=== PATIENT | male | born 1935 | race Caucasian/White ===

== ENCOUNTER 2019-01-06 16:27 | Emergency (ER) | payer MEDICARE, OTHER ==
[~2019-01-06] VITALS: Ht 172.7 cm; Wt 59.0 kg
--- NOTE | 2019-01-06 16:55 | NUR ---
pt sent to ed via [facility] from [facility] after becoming aggressive with staff. pt has dementia and no recollection of event. pt is pleasent and appropriate upon arrival. pt connected to monitors. vss. edmd assessment complete. awaiting orders. per , pt needs inpatient psychiatric assessments and evaluations to "get medications under control." pt's states [facility] is uanle to deal with pt at night.
[2019-01-06] MEDS ORDERED: LORazepam 2 MG/ML, 1ML IM ONE (17:30)
[2019-01-06] MEDS ORDERED: LORazepam 1MG TABLET ONE (17:39)
[2019-01-06 17:45] LABS: BASOPHILS # (AUTO) 0.03 x10^3/uL (0-0.1); BASOPHILS % (AUTO) 0 % (0-1); EOSINOPHILS % (AUTO) 3 % (1-7); LYMPHOCYTES # (AUTO) 0.92 x10^3/uL (1-3.4); LYMPHOCYTES % (AUTO) 15 % (22-44); MD NO; MEAN CORPUSCULAR HEMOGLOBIN 33.1 pg (27.5-34.5); MEAN CORPUSCULAR HGB CONC 34.1 g/dL (33.2-36.2); MEAN PLATELET VOLUME 7.5 fL (7.4-10.4); MONOCYTES # (AUTO) 0.65 x10^3/uL (0.2-0.8); MONOCYTES % (AUTO) 10 % (2-9); NEUTROPHILS # (AUTO) 4.52 x10^3/uL (1.8-6.8); NEUTROPHILS % (AUTO) 72 % (42-75); PLATELET COUNT 189 x10^3/uL (130-400); RED BLOOD COUNT 3.74 x10^6/uL (4.38-5.82)
[2019-01-06 17:53] LABS: ALANINE AMINOTRANSFERASE 26 U/L (12-78); ALBUMIN 3.3 g/dL (3.4-5.0); ANION GAP 6 mmol/L (5-15); CALCIUM 8.5 mg/dL (8.5-10.1); CHLORIDE 113 mmol/L (98-107); CREATININE 1.14 mg/dL (0.7-1.3)
--- NOTE | 2019-01-06 17:58 | NUR ---
BREAK RN: PT COOPERATIVE AT BS, MEAL PROVIDED. EXPLAINED THE NEED FOR UA. URINAL AT BS. PT AND SPOUSE VERBALIZED NO NEEDS AT THIS TIME
[2019-01-06] MEDS ORDERED: MIRT45TA57 PO (17:59)
[2019-01-06] MEDS ORDERED: QUET50TA PO ×2 (18:00→18:03)
[2019-01-06] MEDS ORDERED: MULT-204 PO (18:00)
[2019-01-06] MEDS ORDERED: LORazepam 1MG TABLET PO ONE (18:00)
[2019-01-06] MEDS ORDERED: TEMA30CA PO (18:01)
[2019-01-06] MEDS ORDERED: TRAZ-137 PO (18:01)
[2019-01-06] MEDS ORDERED: SERT25TA3 PO (18:02)
[2019-01-06] MEDS ORDERED: MEMA10TA PO (18:02)
[2019-01-06 18:04] LABS: ALKALINE PHOSPHATASE 83 U/L (45-117); BILIRUBIN,TOTAL 0.1 mg/dL (0.2-1.0); FREE T4 (FREE THYROXINE) 0.81 ng/dL (0.76-1.46); TOTAL PROTEIN 5.9 g/dL (6.4-8.2)
[2019-01-06] MEDS ORDERED: ZIPRASIDONE 20 MG INJ IM ONE ×2 (18:27→18:30)
[2019-01-06 18:43] VITALS: BP 112/51
--- NOTE | 2019-01-06 18:44 | NUR ---
PT ADMINISTERED GEODON. PT CLEANED AND PROVIDED CLEAN PANTS. PT REFUSING PULSE OX. BP STABLE. NO OTHER ENEDS AT THIS TIME.
--- NOTE | 2019-01-06 19:21 | NUR ---
PT RESTING IN ROOM WTIH EYES CLOSED. SITTER IN ROOM FOR SAFETY. NO NEEDS EXPRESSED. AWAITING DISPO.
== END 2019-01-06 20:27 | disposition home or self-care (01) ==
LOC: ED 17:49
DX: G30.1 Alzheimer's disease with late onset (principal); F02.81 Dementia in other diseases classified elsewhere, unspecified severity, with behavioral disturbance
CPT/HCPCS: 36415; 71045; 80053; 84439; 84443; 85025; 93005; 96372; 99284; J3486